=== PATIENT | female | born 1960 | race African-American/Black ===

== ENCOUNTER 2021-01-12 12:24 | Emergency (ER) | payer OTHER ==
[2021-01-12 12:37] VITALS: BP 150/86; PULSE 79; TEMP 97.7; BMI 28.3
[2021-01-12] MEDS ORDERED: IBUPROFEN 600 MG TABLET (FP) PO ONE ×2 (13:11→13:26)
== END 2021-01-12 15:10 | disposition home or self-care (01) ==
LOC: JERFT 12:24 → JER 12:24 → JERFT 15:10
DX: S40.011A Contusion of right shoulder, initial encounter (principal); W22.09XA Striking against other stationary object, initial encounter; V79.50XA Passenger on bus injured in collision with unspecified motor vehicles in traffic accident, initial encounter
CPT/HCPCS: 73030-TC-RT-FY; 99283-25

== ENCOUNTER 2022-03-12 14:49 | Emergency (ER) | payer OTHER ==
[2022-03-12 15:06] VITALS: BP 135/82; PULSE 60; RESP 20; TEMP 98; BMI 28.1
[2022-03-12 16:30] LABS: BASO % 0.9 % (0-2.0); EOS % 4.4 % (0-4.5); HEMOGLOBIN 12.5 GM/dL (10.7-15.3); LYMPH % 43.4 % (8-40); MCH 29.1 pg (25.7-33.7); MCHC 32.9 g/dl (32.0-36.0); MEAN CELL VOLUME 88.5 fl (80-96); MEAN PLT VOLUME 9.3 fl (7.5-11.1); MONO % 7.9 % (3.8-10.2); NEUT % 43.4 % (42.8-82.8); PLATELET COUNT 269 10^3/uL (134-434); RBC 4.29 M/mm3 (3.60-5.2); RDW 14.5 % (11.6-15.6); WHITE BLOOD COUNT 3.5 K/mm3 (4.0-10.0)
[2022-03-12 16:36] LABS: BLOOD UREA NITROGEN 15.2 mg/dL (7-18); CALCIUM 9.4 mg/dL (8.5-10.1)
[2022-03-12 16:39] LABS: CREATININE 0.9 mg/dL (0.55-1.3)
[2022-03-12 16:41] LABS: BILIRUBIN,TOTAL 0.4 mg/dL (0.2-1)
[2022-03-12 17:24] LABS: PH,URINE 6.5 (5.0-8.0); URINE APPEARANCE CLEAR; URINE BILIRUBIN NEGATIVE (NEGATIVE); URINE COLOR YELLOW; URINE GLUCOSE (UA) NEGATIVE (NEGATIVE); URINE KETONE NEGATIVE (NEGATIVE); URINE LEUK ESTERASE NEGATIVE (NEGATIVE); URINE NITRITE NEGATIVE (NEGATIVE); URINE PROTEIN NEGATIVE (NEGATIVE); URINE UROBILINOGEN 0.2 mg/dL (0.2-1.0)
== END 2022-03-12 17:36 | disposition home or self-care (01) ==
LOC: JERFT 14:49 → JER 14:49 → JERFT 17:36
DX: R14.0 Abdominal distension (gaseous) (principal)
CPT/HCPCS: 36415; 74019-TC-FY; 80053; 81003; 83690; 85025; 99284-25